=== PATIENT | female | born 1955 | race African-American/Black ===

== ENCOUNTER 2020-02-24 09:39 | Emergency (ER) | payer MEDICAID ==
[~2020-02-24] VITALS: Ht 157.5 cm; Wt 109.0 kg
[~2020-02-24 09:39] MED LIST: ASPI-1497; ATOR40TA70 PO; GLYB5TAB4; HYDR-2510; IPRATROPIUM; METF1000; METOPROLOL PO; PROT40 PO
[2020-02-24] MEDS ORDERED: ACETAMINOPHEN 325MG TABLET PO STA (10:06)
[2020-02-24] MEDS ORDERED: METHYLPREDNISOLONE SOD SUCC 125 MG/2 ML VIAL IV ONE (10:15)
[2020-02-24] MEDS ORDERED: ALBUTEROL 6.7GM HFA INHALER ORI PRN (10:15)
[2020-02-24 10:26] LABS: BASOPHILS % 0.6 % (0.0-2.0); EOSINOPHILS % 1.4 % (0.0-5.0); HEMATOCRIT. 37.9 % (36.0-48.0); HEMOGLOBIN. 12.1 g/dL (12.0-16.0); LYMPHOCYTES % 17.8 % (20.0-50.0); MEAN CORPUSCULAR HEMOGLOBIN 24.4 pg (28.0-32.0); MEAN CORPUSCULAR VOLUME 76.3 fL (81.0-99.0); MEAN PLATELET VOLUME 8.1 fl (7.4-10.4); MONOCYTES % 7.9 % (2.0-8.0); NEUTROPHILS % 72.3 % (40.0-76.0); PLATELET 319 x1000/uL (130-400); RED BLOOD CELL COUNT 4.96 mill/uL (4.2-5.4); RED CELL DISTRIBUTION WIDTH 15.9 % (11.6-14.6)
[2020-02-24 10:27] LABS: CLARITY URINE CLEAR (CLEAR); COLOR URINE YELLOW (YELLOW); KETONES URINE NEGATIVE (NEGATIVE); LEUKOCYTE ESTERASE URINE 2+ (NEGATIVE); NITRITE URINE NEGATIVE (NEGATIVE); OCCULT BLOOD URINE NEGATIVE (NEGATIVE); PROTEIN URINE NEGATIVE (NEGATIVE); SPECIFIC GRAVITY URINE 1.016 (1.005-1.030); UROBILINOGEN URINE 0.2 E.U./dL (0.2-1.0)
[2020-02-24 10:31] LABS: CHLORIDE 107 mEq/L (98-107)
[2020-02-24] MEDS ORDERED: ONDANSETRON 4MG ODT PO ONE (11:15)
[2020-02-24] MEDS ORDERED: ASPIRIN 81MG TABLET PO ONE (11:30)
[2020-02-24] MEDS ORDERED: NA PHOS,M-B/NA PHOS,DI-BA ENEMA 118ML PR PRN (16:00)
[2020-02-24] MEDS ORDERED: CLONIDINE 0.1MG TABLET PO PRN (16:00)
[2020-02-24] MEDS ORDERED: GUAIFENESIN 200MG/10ML SUGAR FREE UDC PO PRN (16:00)
[2020-02-24] MEDS ORDERED: MAGNESIUM/ALUMINUM HYDROXIDE/SIMETHICONE 30ML UDC PO PRN (16:00)
[2020-02-24] MEDS ORDERED: DEXTROSE 50% WATER 50ML SYRINGE IV PRN (16:00)
[2020-02-24] MEDS ORDERED: HYDRALAZINE 20MG/ML VIAL IV PRN (16:00)
[2020-02-24] MEDS ORDERED: DIPHENHYDRAMINE 50MG/ML VIAL IV PRN (16:00)
[2020-02-24] MEDS ORDERED: LORAZEPAM 2MG/ML CPJ IV PRN (16:00)
[2020-02-24] MEDS ORDERED: HYDROCODONE/ACETAMINOPHEN 10/325MG TABLET PO PRN (16:00)
[2020-02-24] MEDS ORDERED: ACETAMINOPHEN 325MG TABLET PO PRN (16:00)
[2020-02-24] MEDS ORDERED: MORPHINE SULFATE 2 MG/ML CPJ (NOT FOR IM USE) IV PRN (16:00)
[2020-02-24] MEDS ORDERED: ONDANSETRON HCL 4MG/2ML INJ IV PRN (16:00)
[2020-02-24] MEDS ORDERED: DOCUSATE SODIUM 100MG CAPSULE PO PRN (16:00)
[2020-02-24] MEDS ORDERED: BLOOD SUGAR DIAGNOSTIC STRIP TEST SCH (17:00)
[2020-02-24] MEDS ORDERED: AZITHROMYCIN 500 MG TABLET PO SCH (17:30)
[2020-02-24] MEDS ORDERED: METHYLPREDNISOLONE SOD SUCC 40 MG/ML VIAL IV SCH (18:00)
[2020-02-24] MEDS ORDERED: ENOXAPARIN 40MG/0.4ML SYR SUBCUT SCH (18:00)
[2020-02-24] MEDS ORDERED: ALBUTEROL 6.7GM HFA INHALER ORI SCH (18:00)
[2020-02-24] MEDS ORDERED: INSULIN LISPRO 100 UNITS/ML SUBCUT SCH (18:20)
[2020-02-24 19:30] VITALS: BP 128/71
[2020-02-24] MEDS ORDERED: SODIUM CHLORIDE 0.9% INJ 3ML FLUSH IVF SCH (22:00)
== END 2020-02-24 20:24 | disposition left against medical advice (07) ==
LOC: ER 09:39 → EDBEDREQ 16:20 → ENRESERV 20:17 → CANRESERV 20:17 → ER 20:24 → CANBEDREQ 20:57
DX: R07.89 Other chest pain (principal); Z20.828 Contact with and (suspected) exposure to other viral communicable diseases; E11.649 Type 2 diabetes mellitus with hypoglycemia without coma; I10 Essential (primary) hypertension; E78.00 Pure hypercholesterolemia, unspecified; Z79.899 Other long term (current) drug therapy
CPT/HCPCS: 36415; 80053; 81003; 83880; 84484; 85025; 94640; 96374; 99285; C9803; Q0162; U0003; Z7610

== ENCOUNTER 2021-09-18 14:43 | Emergency (ER) | payer MEDICAID ==
[~2021-09-18] VITALS: Ht 160 cm; Wt 109.0 kg
[~2021-09-18 14:43] MED LIST changes: -HYDR-2510; +HYDR50TA
[2021-09-18 14:51] VITALS: BP 124/71
[2021-09-18] MEDS ORDERED: ASPIRIN 81MG TABLET PO ONE (15:00)
[2021-09-18] MEDS ORDERED: NITROGLYCERIN 0.4MG TABLET SL SL PRN (15:00)
[2021-09-18 15:32] LABS: BASOPHILS % 0.6 % (0.0-2.0); HEMATOCRIT. 38.1 % (36.0-48.0); LYMPHOCYTES % 19.2 % (20.0-50.0); MEAN CORPUSCULAR HEMOGLOBIN 23.2 pg (28.0-32.0); MEAN CORPUSCULAR VOLUME 73.4 fL (81.0-99.0); MONOCYTES % 9.6 % (2.0-8.0); NEUTROPHILS % 69.6 % (40.0-76.0); PLATELET 343 x1000/uL (130-400); RED BLOOD CELL COUNT 5.19 mill/uL (4.2-5.4); RED CELL DISTRIBUTION WIDTH 16.5 % (11.6-14.6)
[2021-09-18 15:38] LABS: CHLORIDE 106 mEq/L (98-107)
== END 2021-09-18 17:42 | disposition left against medical advice (07) ==
LOC: ER 14:43
DX: R07.89 Other chest pain (principal); Z53.21 Procedure and treatment not carried out due to patient leaving prior to being seen by health care provider
CPT/HCPCS: 36415; 71045; 80053; 83880; 84484; 85025; 93005; 99285